=== PATIENT | male | born 1955 | race Caucasian/White ===

== ENCOUNTER → 2020-07-01 09:40 | Outpatient (BNVA) | payer OTHER, SELFPAY | PROVIDERS: PCP Internal Medicine; Visit Provider Surgery Vascular Surgery | DX: Z76.89 Persons encountering health services in other specified circumstances (principal) ==

== ENCOUNTER 2023-12-12 09:57 | Outpatient (AMB) | payer MEDICARE, OTHER, SELFPAY ==
--- NOTE | 2023-12-12 10:17 | HO.SPINEOV ---
Intake Visit Reasons: weakness Intake Note: Mr. Nieves is here today c/o weakness in right wrist. 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 This is a very nice 68-year-old gentleman who reports a weakness in his right hand which began sometime around November of last year. It initially started with severe neck pain, which ultimately about a week later ended up causing some tingling in discomfort going down his right arm into his whole hand. He underwent a series of conservative treatments including physical therapy and a few cortisone injections and that seems to have made it better. However, it was 6-7 months into this process that he noticed weakness of his right hand in his right wrist. Ultimately the pain resolved but he has been left with this weakness of his hand. He underwent occupational therapy and physical therapy to try to restrict in it. 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 He is here today with an MRI cervical spine from last year showing degenerative arthritis in some cervical stenosis. He has no symptoms on the left. He has no symptoms in the lower extremities. He does report a tremor in the right hand which is suspected to be an essential tremor. He has a follow-up with a neurologist in [place] to evaluate that. He did have an extensive workup for the tremor done at [facility], but the neurologist who was evaluating him and did the muscle biopsies ultimately left his practice in the patient never got an answer as to what the results showed. PMH: He has a history of hypertension, resting tremor in his right hand, he has aortic aneurysm which is followed by Dr. Suarez at [facility] and has been stable for years. He had surgery on his right hand to repair fingertips that he cut in a circular saw accident. He had carpal tunnel done on the right side. Social hx: He has not smoke, drink use any recreational drugs Medications: Losartan, metoprolol Allergies: Amoxicillin Keflex Physical exam: Awake alert oriented no acute distress, neurological examination with pertinent findings for weakness of his whole right hand including finger extension, finger intrinsics, finger flexion as well as wrist extension. No objective sensory loss. He has intact reflexes at the biceps and triceps bilaterally as well as the patella. There is no Delgado's nor any clonus. Positive Tinel's, positive Phalen's sign. Imaging review: Cervical MRI done at [place] shows moderate degenerative arthritis at C5-6 with bilateral foraminal stenosis and moderate central canal stenosis. No cord signal change. EMG done at [facility] shows that he has postsurgical changes at the wrist with some latency in the median nerve, and what looks like a polyneuropathy of the right hand. Impression: 68-year-old male presents to the office today for evaluation of weakness of his right hand in his right wrist which presented 6-7 months into what sounds like a cervical radiculopathy. Ultimately the pain went away but he has been left with a weakness. He also developed tremor in his right hand along the same timeframe. He had a neurologist workup with what sounds like muscle biopsies but ultimately he was never made aware of any of the findings. Had an EMG done which showed a polyneuropathy of the right arm. On my exam he does have multiple overlapping weakness is and different myotomes of his hand and wrist. This seems consistent with the EMG. He has no signs of myelopathy on his exam such as hyperreflexia, spasticity, etc.. I would like to get an updated MRI however because many of the symptoms that he currently has started after the MRI was done last December. I can call him with the results. Thank you for allowing us to care for your patient. The total time spent with this visit with this patient was 45 minutes reviewing history, physical exam, cervical spine imaging review, and implementation of treatment plan or further diagnostic testing Buddy Arauz MD,PhD [facility] Orders: Orders MR cervical spine wo con Today M79.601 - Pain in right arm Coding Level of Care Code New Pt Level 4 (78760) Diagnoses Right hand weakness R29.898
== END 2023-12-12 10:58 | disposition home or self-care (01) ==
PROVIDERS: PCP Internal Medicine; Referring Provider Physician Assistant; Visit Provider Physician Assistant
DX: R29.898 Other symptoms and signs involving the musculoskeletal system (principal)
CPT/HCPCS: 99204

== ENCOUNTER → 2023-12-12 09:57 | Outpatient (BNVA) | payer OTHER, SELFPAY | PROVIDERS: PCP Internal Medicine; Visit Provider Physician Assistant | DX: R29.898 Other symptoms and signs involving the musculoskeletal system (principal); M47.812 Spondylosis without myelopathy or radiculopathy, cervical region; M48.02 Spinal stenosis, cervical region | CPT/HCPCS: 99202 ==

== ENCOUNTER 2024-07-16 09:21 | Outpatient (AMB) | payer MEDICARE, OTHER, SELFPAY ==
--- NOTE | 2024-07-16 09:17 | MHC.OFFVIS ---
Vital Signs 07/16/24 09:18 Height 6 ft 1 in Weight 224 lb 6 oz BMI 29.6 BP 148/90 H Blood Pressure Location Lt brachial Position Sitting Pulse 57 Pulse Source Pulse Oximeter Pulse Oximetry (%) 98 Oxygen Delivery Method Room Air Intake Visit Reasons: INP-Polyneuropathy Allergies amoxicillin Allergy (Unknown, Verified 07/16/24 09:18) Unknown cephalexin [From Keflex] Allergy (Unknown, Verified 07/16/24 09:18) Unknown Medication List - Last Reconciled 07/16/24 by Kaylee Hanks MD ascorbic acid (vitamin C) 1,000 mg PO DAILY cholecalciferol (vitamin D3) 50 mcg PO DAILY coQ10 (ubiquinol) (Qunol Fredy CoQ10) 100 mg PO DAILY glucosamine HCl 1,500 mg PO DAILY losartan 25 mg PO DAILY magnesium 200 mg PO DAILY metoprolol succinate ER 25 mg PO DAILY omega-3 fatty acids-fish oil 300-500 mg (Fish Oil) caps PO thiamine mononitrate (vit B1) 100 mg PO 2XW vitamin B complex 1 tab PO DAILY vitamin K2 45 mcg PO DAILY HPI Comments Details: 68y/o Right handed male comes for evaluation of right hand tremor. He has h/o cervical stenosis and was seen by Neurospine and followed up at [facility] . He started noticing tremors at rest in his right hand in 2021. It is intermittent and does not bother him.He was seen by and was diagnosed with parkinsons disease. He was given meds but he didnt take it . He was seen by - did skin biopsy . He has mild soft voice and dysprosody .No drooling . he has difficulty writing related to right hand weakness.He has some difficulty with cutting meat.He has mild difficulty with dressing. No difficulty with showering . Denies any problem with walking. no hallucination, no dizziness, no nausea, no constipation, no bladder issues. Memory- good sleep- difficult due to neck pain He has sleep talking and occasionally acts out his dreams. He denies mood issues He is motivated to exercise. 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 [facility] Medical History (Updated 07/16/24 @ 10:14 by Kaylee Hanks MD) Parkinson's disease without dyskinesia or fluctuating manifestations Parkinsons disease Coarse tremors Low back pain Cervical spondylarthritis Aortic aneurysm Hypertension Surgical History H/O eye surgery Hx of hand surgery Family History Mother Breast cancer Hypertension Father History of angina Social History Household Members: Spouse Housing: House Alcohol intake: never Patient Tobacco Use Status: Never used Tobacco service: Yes ([employer]) Current occupational status: retired Cognitive needs: No Hearing needs: No Vision needs: Yes Physical Exam Vital Signs: Last Vital Signs Pulse 57 07/16/24 09:18 BP 148/90 H 07/16/24 09:18 Pulse Ox 98 07/16/24 09:18 Oxygen Delivery Method Room Air 07/16/24 09:18 BMI result Body Mass Index 29.6 Const General: cooperative, healthy appearing and no acute distress Nutritional Appearance: average body habitus Orientation/consciousness: patient oriented x3 HEENT Head: Yes normal to inspection Neck Other: mild antecollis and restricted range of motion Neuro Other: Modertae decreased blink and facial expression No lower lip tremors, tongue tremors , slow tongue movements Voice-hypophonia dysprosody Right UE high amplitude rest tremors intermittent Fine Finger movements - mild decreased alexus R>L Alternating hand movements -mild decreased alexus Hand movements - decreased alexus Foot taps- decreased alexus Right Ue 2 + cog wheel rigidity gait - stooped, mild slowness and decreased arm swing R>L General: patient oriented x3 and no focal motor deficits Cranial nerves: Yes CN's II-XII intact bilaterally, Yes Bilaterally intact EOM present, Yes Normal facial strength present and Yes Midline tongue present Cognition (Neuro): normal cognition Motor exam (neuro): 5/5 motor strength present throughout Deep tendon reflexes (DTR's): Right triceps reflex intensity grade: 2+, Left triceps reflex intensity grade: 2+, Rt Biceps (C5, C6): 2+, Left biceps reflex intensity grade: 2+, Right brachioradialis reflex intensity grade: 2+, Left brachioradialis reflex intensity grade: 2+, Right patellar reflex intensity grade: 3+ and Left patellar reflex intensity grade: 3+ Coordination: [id number] test normal Assessment & Plan Assessment & Plan (1) Parkinson's disease without dyskinesia or fluctuating manifestations: Comment: garett idiopathic Code(s): G20.A1 - Parkinson's disease without dyskinesia, without mention of fluctuations Category: Medical Plan Discussed diagnosis and management options in detail I will start PT , info on APDA and Parkinsons wellness class was given Patient will call me back if he is interested in trying medications MRI brain to r/o structural causes Yue scan to confirm diagnosis. Orders: Orders MR head/brain wo con Today R25.1 - Tremor, unspecified DaTscan Today G25.2 - Other specified forms of tremor PT Evaluation and Treatment Today G20.A1 - Parkinson's disease without dyskinesia, without mention of fluctuations Coding Level of Care Code New Pt Level 4 (96544) Complex EM visit Add On G2211 Diagnoses Parkinson's disease without dyskinesia or fluctuating manifestations G20.A1
[2024-07-16 09:18] VITALS: BP 148/90; PULSE 57; O2SAT 98; BMI 29.6
--- OUTSIDE RECORDS SUMMARY | 2024-07-16 09:47 | XMS_ITS | Encounter Summary ---
Author Name [facility] [place] [facility] Address [address] [place] [id number] Support Name Relationship Address Phone SALOMÓN TOM Next of Kin [address] [place] [phone] TOM LORENZANA Emergency Contact [address] [place] [address] Insurance Providers: All historical and current Section Date Range: From patient's date of to the date document was created. This section includes the names of all active insurance providers for the patient. Insurance Provider Type of Coverage Plan Name Start of Policy Coverage End of Policy Coverage Group Number Member ID Insurance Provider's Telephone Number Policy Dowling's Name Patient's Relationship to Policy Dowling MEDICARE (WNR) MEDICARE (M) PART A Aug 11, 2021 PART A [id number] [facility] [id number] Lazaro LORENZANA PATIENT MEDICARE (WNR) MEDICARE (M) PART B Aug 11, 2021 PART B [id number] [facility] Lazaro LORENZANA PATIENT [facility] MEDICAL EXPENSE (OPT/PROF ) [facility] * Aug 11, 2021 [id number] Lazaro LORENZANA PATIENT Selected Encounter This section includes the information on record at [place] for the Encounter. Date/Time Encounter Type Encounter Description Reason Provider Source Jan 23, 2024 09:30 AM Outpatient Encounter AUDIOLOGY ICD-10-CM Z02.89 Encounter for other administrative examinations PIA HEATH Russ Encounter Template Text not used by [place] Assessments - Encounter Diagnoses This section includes the primary and secondary diagnoses documented for the Encounter. Date/Time Primary/Secondary Diagnosis Diagnosis Name Provider Source Jan 23, 2024 10:37 AM PRIMARY Encounter for other administrative examinations [facility]ASHLEEPIA Healy [facility] Jan 23, 2024 10:37 AM SECONDARY Sensorineural hearing loss, bilateral PIA HEATH [place] [facility] [place] [facility] Jan 23, 2024 10:37 AM SECONDARY Tinnitus, bilateral PIA HEATH [place] [facility] Encounter Notes: All associated encounter notes This section contains the clinical notes associated to the Encounter. Date/Time Encounter Note(s) Provider Source Jan 23, 2024 09:30 AM C & P EXAMINATION NOTE: LOCAL TITLE: COMPENSATION AND PENSION EXAM STANDARD TITLE: C & P EXAMINATION NOTE DATE OF NOTE: JAN 23, 2024@09:30 ENTRY DATE: JAN 23, 2024@10:36:09 AUTHOR: FAUSTINO HEATH EXP COSIGNER: URGENCY: STATUS: COMPLETED COMPENSATION AND PENSION EXAM Has ADDENDA Hearing Loss and Tinnitus Disability Benefits Questionnaire Name of patient/: KAYLEIGH LORENZANA Is this DBQ being completed in conjunction with a VA [phone], C&P Examination Request? [X] Yes [ ] No How was the examination completed? (check all that apply) [X] In-person examination [X] Records reviewed [ ] Examination via approved video telehealth [ ] Other, please specify in comments box Comments: LION and Evidence Review Indicate method used to obtain medical information to complete this document: [ ] Review of available records (without in-person or video telehealth examination) using the Acceptable Clinical Evidence (LION) process because the existing medical evidence provided sufficient information on which to prepare the questionnaire and such an examination will likely provide no additional relevant evidence. [ ] Review of available records in conjunction with an interview with the [place] (without in-person or telehealth examination) using the LION process because the existing medical evidence supplemented with an interview provided sufficient information on which to prepare the questionnaire and such an examination would likely provide no additional relevant evidence. 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 Objective Findings a. Puretone thresholds in decibels (air conduction): RIGHT EAR + + A B C D E F G ========+========+======= =+========+========+====== ==+========+========+ 500 1000 2000 3000 4000 6000 8000 Avg Hz Hz* Hz Hz Hz Hz Hz Hz (B-E) ========+========+======= =+========+========+====== ==+========+======== 10 15 20 35 50 55 60 [id number] + + LEFT EAR + + A B C D E F G ========+========+======= =+========+========+====== ==+========+========+ 500 1000 2000 3000 4000 6000 8000 Avg Hz Hz* Hz Hz Hz Hz Hz Hz (B-E) ========+========+======= =+========+========+====== ==+========+======== 15 20 25 40 55 70 65 [id number] + + * The puretone threshold at 500 Hz is not used in determining the evaluation but is used in determining whether or not a ratable hearing loss exists. The average of B, C, D, and E. CNT - Could Not Test b. Were there one or more frequency(ies) that could not be tested: No c. Validity of puretone test results: Test results are valid for rating purposes. d. Speech Discrimination Score ([facility] word list): + + RIGHT EAR 86% +========= LEFT EAR 82% + + e. Appropriateness of Use of Word Recognition Score ([place] [facility] word list): Right Ear: Is Word Discrimination Score available? Yes Word Discrimination Score appropriateness: Use of speech recognition score is appropriate for this . Left Ear: Is Word Discrimination Score available? Yes Word Discrimination Score appropriateness: Use of word recognition score is appropriate for this [place]. f. Audiologic Findings Summary of Immittance (Tympanometry) Findings: + + RIGHT EAR LEFT EAR +=== += Acoustic immittance [X] Normal [ ] Abnormal [X] Normal [ ] Abnormal +=== += Ipsilateral Acoustic Reflexes [ ] Normal [X] Abnormal [ ] Normal [X] Abnormal +=== += Contralateral Acoustic Reflexes [ ] Normal [X] Abnormal [ ] Normal [X] Abnormal +=== += Unable to interpret reflexes due to [ ] [ ] artifact +=== += Unable to obtain/ maintain seal [ ] [ ] + + 2. Diagnosis RIGHT EAR --------- [ ] Normal hearing [ ] Conductive hearing loss ICD code: [ ] Mixed hearing loss ICD code: [X] Sensorineural hearing loss (in the frequency range of 500-4000 Hz)* ICD code: H90.3 [ ] Sensorineural hearing loss (in the frequency range of 6000 Hz or higher frequencies) ICD code: [ ] Significant changes in hearing thresholds in service LEFT EAR -------- [ ] Normal hearing [ ] Conductive hearing loss ICD code: [ ] Mixed hearing loss ICD code: [X] Sensorineural hearing loss (in the frequency range of 500-4000 Hz)* ICD code: H90.3 [ ] Sensorineural hearing loss (in the frequency range of 6000 Hz or higher frequencies) ICD code: [ ] Significant changes in hearing thresholds in service NOTES: * The [place] may have hearing loss at a level that is not considered to be a disability for VA purposes. This can occur when the auditory thresholds are greater than 25 dB at one or more frequencies in the 500-4000 Hz range. The [place] may have impaired hearing, but it does not meet the criteria to be considered a disability for VA purposes. For VA purposes, the diagnosis of hearing impairment is based upon testing at frequency ranges of 500, 1000, 2000, 3000, and 4000 Hz. If there is no HL in the 500-4000 Hz range, but there is HL above 4000 Hz, check this box. The [place] may have a significant change in hearing threshold in service, but it does not meet the criteria to be considered a disability for VA purposes. (A significant change in hearing threshold may indicate noise exposure or acoustic trauma.) 3. Etiology [X] Etiology opinion not indicated as: [X] Service connected condition 4. Functional impact of hearing loss Does the 's hearing loss impact ordinary conditions of daily life, including ability to work: Yes If yes, describe impact in the [place]'s own words: reports, My keeps telling me to turn the TV down. 5. Remarks, if any, pertaining to hearing loss: No response provided SECTION 2: TINNITUS 1. Medical history Does the report recurrent tinnitus: Yes Date and circumstances of onset of tinnitus: reports constant ringing tinnitus in both ears, which he states has been present for as long as I can remember. 2. Etiology of tinnitus [X] Etiology opinion not indicated as: [X] Service connected condition 3. Functional impact of tinnitus ------ Does the [place]'s tinnitus impact ordinary conditions of daily life, including ability to work: No 4. Remarks, if any, pertaining to tinnitus:: No response provided NOTE: [place] may request additional medical information, including additional examinations if necessary to complete [place]'s review of the [place]'s application. /ginny/ Peter Coffey CCC-A Mold Runner Signed: 01/23/2024 10:36 01/23/2024 ADDENDUM STATUS: COMPLETED This is an increase exam. /ginny/ Peter Coffey CCC-A Mold Runner Signed: 01/23/2024 10:37 FAUSTINO HEATH [place] CNTRL [facility]
--- OUTSIDE RECORDS SUMMARY | 2024-07-16 09:47 | XMS_ITS | Continuity of Care Document ---
Author Name [facility] Organization [facility] Care Team Providers Care Cvt Tech Name Role Phone [facility] Unavailable Unavailable Problems Combined list of problems from Department of Defense and Veterans Affairs facilities. It does not include entries that were removed or entered in error. Problem Status Onset Date Problem Type Date of Resolution Comments Source Diagnosis: ICD-10-CM Z02.89 Encounter for other administrative examinations Active Diagnosis [facility] Encounters Combined list of: 1) Encounters from Department of Veterans Affairs facilities going back up to thelast 18 months. 2) Encounters from the Department of Defense facilities going back up to 280 months. Location Location Details Encounter Type Encounter Number Reason For Visit Attending Provider ADM Date DC Date Status [facility] En[facility] [id number] Diagnos is: ICD-10- CM Z02.89 Encount er for other adminis trative examina tions<b r/> AMNA HEATH 01/22 [facility]
== END 2024-07-16 10:15 | disposition home or self-care (01) ==
PROVIDERS: PCP Internal Medicine; Visit Provider Psychiatry & Neurology Neurology
DX: G20.A1 Parkinson's disease without dyskinesia, without mention of fluctuations (principal)
CPT/HCPCS: 99204; G2211

== ENCOUNTER → 2024-07-16 09:21 | Outpatient (BNVA) | payer MEDICARE, OTHER, SELFPAY | PROVIDERS: PCP Internal Medicine; Visit Provider Psychiatry & Neurology Neurology | DX: G20.A1 Parkinson's disease without dyskinesia, without mention of fluctuations (principal) | CPT/HCPCS: 99202 ==

== ENCOUNTER → 2024-07-22 11:13 | Outpatient (BNV) | payer MEDICARE, OTHER, SELFPAY | PROVIDERS: PCP Internal Medicine; Visit Provider Radiology Diagnostic Radiology | DX: G20.A1 Parkinson's disease without dyskinesia, without mention of fluctuations (principal) | CPT/HCPCS: 70551 ==

== ENCOUNTER 2024-07-22 11:14 | Outpatient (REF) | payer MEDICARE, OTHER, SELFPAY ==
--- NOTE | ~2024-07-22 | MR_ITS ---
EXAMINATION: MR BRAIN WITHOUT CONTRAST CLINICAL INFORMATION: Parkinson's disease, early stages. Tinnitus. COMPARISON: None available. TECHNIQUE: MRI of the brain was obtained using routine sequences without contrast. FINDINGS: Submitted for interpretation on July 24, 2024. No acute intracranial hemorrhage mass effect midline shift, hydrocephalus or herniation. No restricted diffusion. Normal and symmetric morphology distribution of the susceptibility signal in the correct nucleus, midbrain and basal ganglia. Posterior cranial fossa contents demonstrated no acute intracranial hemorrhage or mass effect. Flow-void signal within the main cerebral vessels is normal. Anterior inferior cerebellar arteries demonstrated a type I morphology pattern. No signal abnormality in the cochlear vestibule or semicircular canals. Sellar/suprasellar region is normal. Craniocervical junction is intact and normal. Midline structures are normal. No signal abnormality or volume loss in the hippocampi. Prominence of the extra-axial CSF spaces cerebral sulci and ventricles.. MR/MR head/brain wo con IMPRESSION: No acute brain abnormality. Mild Global cerebral atrophy.. Electronically signed by: Kiran Roberts MD 07/24/2024 09:50 AM EST
== END 2024-07-22 11:15 | disposition home or self-care (01) ==
LOC: HO.MRI 11:14
PROVIDERS: PCP Internal Medicine; Visit Provider Psychiatry & Neurology Neurology
DX: R25.1 Tremor, unspecified (principal)
CPT/HCPCS: 70551

== ENCOUNTER 2024-12-13 12:58 | Outpatient (AMB) | payer MEDICARE, OTHER, SELFPAY ==
[2024-12-13 13:00] VITALS: BP 124/68; PULSE 51; O2SAT 97; BMI 29.8
--- NOTE | 2024-12-13 13:00 | MHC.OFFVIS ---
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 Accompanied by: Self / Same As Patient Allergies amoxicillin Allergy (Unknown, Verified 12/13/24 13:02) Unknown cephalexin [From Keflex] Allergy (Unknown, Verified 12/13/24 13:02) Unknown Medication List - Last Reconciled 12/13/24 by Kaylee Hanks MD ascorbic acid (vitamin C) 1,000 mg PO DAILY carbidopa-levodopa 25-100 mg 1 tab PO BID cholecalciferol (vitamin D3) 50 mcg PO DAILY coQ10 (ubiquinol) (Qunol Fredy CoQ10) 100 mg PO DAILY glucosamine HCl 1,500 mg PO DAILY losartan 25 mg PO DAILY magnesium 200 mg PO DAILY metoprolol succinate ER 25 mg PO DAILY omega-3 fatty acids-fish oil 300-500 mg (Fish Oil) caps PO thiamine mononitrate (vit B1) 100 mg PO 2XW vitamin B complex 1 tab PO DAILY vitamin K2 45 mcg PO DAILY HPI Comments Details: 69y/o Right handed male comes for evaluation of right hand tremor. His STEVE scan was c/w parkinsons disease.He did not start PT but [facility]. He is on carbidopa/levodopa 25/100 bid - the tremors are less. No difficulties with ADLs. He has h/o cervical stenosis and was seen by Neurospine and followed up at [facility] . He started noticing tremors at rest in his right hand in 2021. It is intermittent and does not bother him.He was seen by and was diagnosed with parkinsons disease. He was given meds but he didnt take it . He was seen by - did skin biopsy . He has mild soft voice and dysprosody .No drooling . he has difficulty writing related to right hand weakness.He has some difficulty with cutting meat.He has mild difficulty with dressing. No difficulty with showering . Denies any problem with walking. no hallucination, no dizziness, no nausea, no constipation, no bladder issues. Memory- good sleep- difficult due to neck pain He has sleep talking and occasionally acts out his dreams. He denies mood issues He is motivated to exercise. 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 [employer] Medical History (Updated 07/16/24 @ 10:14 by Kaylee Hanks MD) Parkinson's disease without dyskinesia or fluctuating manifestations Parkinsons disease Coarse tremors Low back pain Cervical spondylarthritis Aortic aneurysm Hypertension Surgical History H/O eye surgery Hx of hand surgery Family History Mother Breast cancer Hypertension Father History of angina Social History Household Members: Spouse Housing: House Alcohol intake: never Patient Tobacco Use Status: Never used Tobacco service: Yes ([employer]) Current occupational status: retired Cognitive needs: No Hearing needs: No Vision needs: Yes Physical Exam Vital Signs: Last Vital Signs Pulse 51 12/13/24 13:00 BP 124/68 12/13/24 13:00 Pulse Ox 97 12/13/24 13:00 Oxygen Delivery Method Room Air 12/13/24 13:00 BMI result Body Mass Index 29.8 Const General: cooperative, healthy appearing and no acute distress Nutritional Appearance: average body habitus Orientation/consciousness: patient oriented x3 HEENT Head: Yes normal to inspection Neck Other: mild antecollis and restricted range of motion Neuro Other: Modertae decreased blink and facial expression No lower lip tremors, tongue tremors , slow tongue movements Voice-hypophonia dysprosody Right UE mild amplitude rest tremors intermittent Fine Finger movements - mild decreased alexus R>L Alternating hand movements -mild decreased alexus Hand movements - decreased alexus Foot taps- decreased alexus Right Ue 2 + cog wheel rigidity gait - stooped, mild slowness and decreased arm swing R>L General: patient oriented x3 and no focal motor deficits Cranial nerves: Yes CN's II-XII intact bilaterally, Yes Bilaterally intact EOM present, Yes Normal facial strength present and Yes Midline tongue present Cognition (Neuro): normal cognition Motor exam (neuro): 5/5 motor strength present throughout Coordination: [id number] test normal Assessment & Plan Assessment & Plan (1) Parkinson's disease without dyskinesia or fluctuating manifestations: Comment: garett idiopathic Code(s): G20.A1 - Parkinson's disease without dyskinesia, without mention of fluctuations Category: Medical Plan Discussed STEVE scan results info on APDA and Parkinsons wellness class was given Patient will call me back if he is interested in trying medications continue carbidopa/levodopa 25/100 bid and can increase to tid Medications: Refilled carbidopa-levodopa 25-100 mg 1 tab PO BID 180 tabs 6RF Coding Level of Care Code Est Pt Level 4 (00466) Complex EM visit Add On G2211 Diagnoses Parkinson's disease without dyskinesia or fluctuating manifestations G20.A1
--- OUTSIDE RECORDS SUMMARY | 2024-12-13 15:04 | XMS_ITS | Continuity of Care Document ---
Author Name [facility] Organization [facility] Care Team Providers Care Resolution Specialist Name Role Phone [facility] Unavailable Unavailable Problems Combined list of problems from Department of Defense and [facility] facilities. It does not include entries that were removed or entered in error. Problem Status Onset Date Problem Type Date of Resolution Comments Source Diagnosis: ICD-10-CM Z02.89 Encounter for other administrative examinations Active Diagnosis [facility] Encounters Combined list of: 1) Encounters from Department of Veterans Affairs facilities going backup to the last 18 months, not all [place] inpatient encounters are included; 2) Encounters from the Department of [facility] facilities going backup to 280 months. Location Location Details Encounter Type Encounter Number Reason For Visit Attending Provider ADM Date DC Date Status Disposition Source [facility] Outpatient Encounter [id number] Diagnos is: ICD-10- CM Z02.89 Encount er for other adminis trative examAMNA Krueger 01/22 [facility] Plan of Care List of future care activities from [facility] of [facility] facilities. Additional future care activities may be listed in the Assessment and Plan section. Date/Time Care Activity Care Activity Detail Facili ty 12/31/2024 AMBULATORY - REHAB MEDICINE AMBULATORY - REHAB MEDICINE [facility]
== END 2024-12-13 13:32 | disposition home or self-care (01) ==
LOC: HO.HSMS 12:58
PROVIDERS: PCP Internal Medicine; Visit Provider Psychiatry & Neurology Neurology
DX: G20.A1 Parkinson's disease without dyskinesia, without mention of fluctuations (principal)
CPT/HCPCS: 99214; G2211

== ENCOUNTER → 2024-12-13 12:58 | Outpatient (BNVA) | payer MEDICARE, OTHER, SELFPAY | PROVIDERS: PCP Internal Medicine; Visit Provider Psychiatry & Neurology Neurology | DX: G20.A1 Parkinson's disease without dyskinesia, without mention of fluctuations (principal) | CPT/HCPCS: 99212 ==